=== PATIENT | male | born 1985 | race Caucasian/White ===

== ENCOUNTER 2018-06-06 19:33 | Emergency (ER) | payer OTHER ==
[~2018-06-06] VITALS: Ht 177.8 cm; Wt 95.3 kg
[2018-06-06 19:37] VITALS: Ht 177.8 cm; Wt 95.3 kg
[2018-06-06 19:56] LABS: BASOPHIL % 0.3 % (0-2); PLATELET COUNT 160 x10^3mcL (130-400)
[2018-06-06 20:02] LABS: RED CELL DISTRIBUTION WIDTH 15.8 % (11.5-14.5)
[2018-06-06 20:06] LABS: CALCIUM 9.5 mg/dL (8.5-10.1); CARBON DIOXIDE 14.1 mmol/L (21-32); CHLORIDE SERUM 95 mmol/L (98-107); CREATININE SERUM 1.3 mg/dL (0.7-1.3); GFR1 > 60 mL/min; GLUCOSE SERUM 138 mg/dL (74-106); POTASSIUM SERUM 3.7 mmol/L (3.5-5.1); SODIUM SERUM 134 mmol/L (136-145)
[2018-06-06 20:10] LABS: ALBUMIN 4.1 g/dL (3.4-5.0); ALKALINE PHOSPHATASE 106 U/L (46-116); ALT/SGPT 67 U/L (16-63); AST/SGOT 71 U/L (15-37); BILIRUBIN TOTAL 0.33 mg/dL (0.20-1.00); TOTAL PROTEIN, SERUM 8.1 g/dL (6.4-8.2)
[2018-06-06 20:14] LABS: AMPHETAMINE QUAL UR NONE DETECTED (See below)
[2018-06-06 22:05] VITALS: BP 151/103
== END 2018-06-06 22:05 | disposition home or self-care (01) ==
LOC: ED 19:33
PROVIDERS: Emergency Medicine
DX: R56.9 Unspecified convulsions (principal); I10 Essential (primary) hypertension; F32.9 Major depressive disorder, single episode, unspecified
CPT/HCPCS: G0480; J1953; J7030

== ENCOUNTER 2018-10-04 03:23 | Inpatient (IN) | payer OTHER ==
[~2018-10-04] VITALS: Ht 175.3 cm; Wt 88.5 kg
[2018-10-04 03:24] VITALS: Ht 175.3 cm; Wt 88.5 kg
--- NOTE | 2018-10-04 03:50 | NUR ---
PT IN H1 AND GOTTEN UP TO AMBULATE TO BED 14. PT ACCOMPANIED BY OFFICER. PT BEGAN TO BE COME UNSTEADY ON HIS FEET AND WAS ASSISTED TO THE GROUND BY THE OFFICER. PT NOTED TO BED PALE. PT WALK ASSISTED TO BED 14 BY MYSELF AND OFFICER.
--- NOTE | 2018-10-04 04:09 | NUR ---
PT BIB BY AMBULANCE A PREBOOK. PER OFFICER PT WAS FOUND DRUNK IN PUBLIC AND WAS TAKEN TO [facility] WERE THE STAFF MEMBERS WERE UNABLE TO OBTAIN AN ACCURATE BP ON THE PT. PT WAS BROUGHT HERE FOR EVALUATION. PT HAS NO COMPLAINTS AT THIS TIME. PT STATES THAT HE HAS NO PAIN BECAUSE HE HAS BEEN DRINKING ALCOHOL. PT PLACED ON FULL CM. RESP ARE EQUAL AND UNLABORED. NO ACUTE DISTRESS. [place] [employer] AT BEDSIDE.
[2018-10-04 04:35] LABS: BASOPHIL % 0 % (0-2); PLATELET COUNT 159 x10^3mcL (130-400); RED CELL DISTRIBUTION WIDTH 13.5 % (11.5-14.5)
[2018-10-04 04:43] LABS: ALBUMIN 3.6 g/dL (3.4-5.0); BILIRUBIN TOTAL 1.81 mg/dL (0.20-1.00); CALCIUM 8.4 mg/dL (8.5-10.1); CARBON DIOXIDE 17.1 mmol/L (21-32); POTASSIUM SERUM 3.3 mmol/L (3.5-5.1)
[2018-10-04 04:47] LABS: CREATININE SERUM 4.4 mg/dL (0.7-1.3)
[2018-10-04] MEDS ORDERED: SEROQUEL50 M1 PO (04:55)
[2018-10-04] MEDS ORDERED: ZESTRIL20 MG PO (04:56)
[2018-10-04] MEDS ORDERED: WELLBUTRIN XL300 M1 PO (04:57)
[2018-10-04] MEDS ORDERED: ATENOLOL25 MG PO (04:57)
--- NOTE | 2018-10-04 06:09 | NUR ---
REPORT GIVEN TO QUINCY DERAS TO ASSUME CARE OF PT.
--- NOTE | 2018-10-04 06:44 | NUR ---
RECEIVED PT FROM ED. PT AOX4. DENIES CHOE/DIZZINESS. PLACED PT ON TELE #19, READING NSR, HR 84. DENIES CP/PRESSURE. DENIES SOB/DIFFICULTY BREATHING, ON RA. IV TO LAC, INTACT AND PATENT. BED IN LOWEST POSITION. CALL LIGHT WITHIN REACH. WILL CONTINUE TO MONITOR.
[2018-10-04 06:50] VITALS: BP 106/59
--- NOTE | 2018-10-04 07:18 | NUR ---
PT SEEN REST ON BED, NO COMPLAIN OF PAIN AND DIZZINESS. PER PT REPORT, HE HAD SEIZURE ABOUT ONE MONTH AGO. SZ PRECAUTION APPLIED. PT STATED HE IS HOMELESS, MOST TIME HE SLEEPS IN HIS CAR. PT BREATHING ON RA, EVEN, UNLABORED. NPO AT THIS TIME. IV SITE, PATENT, INTACT. IVF INFUSING AT 100ML/HR.
[2018-10-04 07:52] LABS: AMPHETAMINE QUAL UR NONE DETECTED (See below)
[2018-10-04 08:21] VITALS: BP 95/53
[2018-10-04 09:51] VITALS: BP 95/53
--- NOTE | 2018-10-04 10:20 | NUR ---
PER PT'S REPORT, HE TAKES SEROQUEL 50MG IN DAY AND 100MG AT NIGHT, WELLBUTRIN 300MG. WILL MAKE DR. CHRISTY AWARE.
--- NOTE | 2018-10-04 13:54 | NUR ---
PT REFUSED TO TAKE SCHEDULED ATIVAN, AND STATED "THERE IS ONLY 24HR, ALCOHOL STILL IN HIS SYSTEM. I DON'T NEED ATIVAN NOW." WILL CLOSLY WATCH PT.
[2018-10-04 15:13] LABS: UA SPECIFIC GRAVITY >=1.030 (1.005-1.035); microscopic required? YES; urine erythrocyte 2+ (NEGATIVE)
--- NOTE | 2018-10-04 16:20 | NUR ---
PT STARTED BEING PARANOID AND STATED HEARING HIS BROTHER AND HIS AUNT ARE IN HALLWAY,TALKING ABOUT HIM. REORIENTED PT. PT'S HOME MEDS WELLBUTRIN AND SEROQUEL GIVEN. WILL CONTINUE TO MONITOR.
[2018-10-04 18:32] VITALS: BP 97/73
--- NOTE | 2018-10-04 18:36 | NUR ---
PT IS ABLE TO STAY COOPERATIVE CARE, BUT STILL PRESENTING PARANOID AND SAYING PEOPLE OUT SIDE OF ROOM ARE TALKING ABOUT HIM. REASSURE PT NO ONE IS TALKING ABOUT HIM.
--- NOTE | 2018-10-04 20:07 | NUR ---
PT. AWAKE, ALERT, ORIENTED X4. DENIES HEADACHE OR DIZZINESS. SPEECH CLEAR THROUGHOUT LUNG AARON, RESP. EVEN, UNLABORED. NO SOB NOTED. PT. ON RA. NSR ON TELE # 19. DENIES CHESTPAIN OR DISCOMFORT. PEDAL PULSES STRONG BLE. ABD. SOFT AND ROUND, BOWEL SOUNDS ACTIVE. IVF NS INFUSING WELL, SITE INTACT. PEDAL PULSES STRONG BLE. PT. APPEARS TENSE AT TIMES AND COULD BE HEARD SPEAKING TO HIMSELF DURING ROUNDS. PT. COOPERATIVE W/ CARE THUS FAR. FREQUENT ROUNDS PLANNED. CALL LIGHT WITHIN REACH.
[2018-10-04 20:27] VITALS: BP 136/80
--- NOTE | 2018-10-04 21:31 | NUR ---
PT. REFUSED TO TAKE HIS ATIVAN. PT. ADVICED, MADE AWARE OF THE NEED FOR THIS MEDICATION BUT HE STILL REFUSED. PT. MADE AWARE THAT MEDICATION IS AVAILABLE IF HE CHANGES HIS MIND.
--- NOTE | 2018-10-04 22:08 | NUR ---
PT. WALKING THE HALLS FREQUENTLY. COOPERATIVE W/ THUS FAR. WILL CONTINUE TO MONITOR.
--- NOTE | 2018-10-04 22:27 | NUR ---
PT. ROAMING THE [place], RESTLESS. IV CATH OUT, FOUND ON FLOOR. PT. ARM BLEEDING. SITE SECURED W/ 2X2 GAUZE. PT. ESCORTED TO BED. BED ALARM ON.PT. NON COMPLIANT AT THIS TIME
--- NOTE | 2018-10-04 23:21 | NUR ---
Nazario BURROWS notified regarding patients current situation if he decided to leave the hospital since it stated on ER and Primary MD H&P that pt is currently under custody for alcohol intoxication when pt got admitted. Call placed to Nazario BURROWS at [phone] and spoken with Dispatcher Tamara and she confirmed with a darshana and stated that patient was already cited and not under custody.
--- NOTE | 2018-10-04 23:47 | NUR ---
PT. OFFERED ATIVAN PO, PT. REFUSING MEDICATION. PT. CONTINUES TO CESAR AROUND THE HALLS. PT. REMOVING TELE BOX CONSTANTLY. PT. REORIENTED. FREQUENT ROUNDS BEING MADE. DIFFERENT LICENSED NURSES ASSISTING WITH ROUNDS TO ENSURE PT. SAFETY. PT.S' ROOM CLOSE TO NURSES STATION.
--- NOTE | 2018-10-05 00:41 | NUR ---
PT.'S ROAMING BEHAVIOR INCREASING. PT. BECOMING SUSPICIOUS OF STAFF AND STATING THAT PEOPLE ARE TALKING ABOUT HIM. PT. AGREED TO TAKE ONE DOSE OF ATIVAN PO, WHICH WAS GIVEN TO HIM. SECURITY HAD TO BE CALLED, PT. WAS BECOMING INCREASINGLY TENSE AND PUTTING HIS FIST UP AGAINST OUR MALE STAFF. THE SITUATION WAS DIFFUSED BY SECURITY, PATIENT BECAME CALM AND AGREED TO GO BACK TO HIS ROOM ANDSTAY IN HIS ROOM FOR NOW. TELE MONITOR WAS PLACED BACK ON. DR. DUKE FROM [facility].
--- NOTE | 2018-10-05 01:00 | NUR ---
DR. DUKE MADE AWARE OF PT.'S BEHAVIOR AND REFUSAL TO TAKE HIS MEDS EARLIER IN THE SHIFT. MADE AWARE OF PT.'S INCREASINGLY TENSE BEHAVIOR. PRN HALDOL IM AND PRN ATIVAN IV ORDERED. PSYCH CONSULT WILL BE DONE IN AM PER DR. DUKE.
--- NOTE | 2018-10-05 03:54 | NUR ---
PT. CONTINUES TO REMOVE HIS TELE MONITOR AND REFUSING TO PUT IT BACK ON. FIRST HE AGREES ANS THEN HE TAKES IT OFF. HEART MONITOR RETURNED TO STATION. PT. OFFERED HALDOL IM FOR AGITATION AND ANXIETY. PT. AGREED TO RECEIVED HALDOL IM ORDERED. MEDICATION GIVEN TO RT. BUTTOCKS IM ORDERED. WILL MONITOR.
[2018-10-05 05:54] VITALS: BP 125/81
--- NOTE | 2018-10-05 06:33 | NUR ---
PT. REFUSED HI BLOOD DRAW THIS MORNING. PT. MADE AWARE THAT LABS ARE ARE NEEDED FOR NETTER PT. EVALUATION BY THE DOCTOR/TEAM. AND THEY ARE VERY IMPORTANT TO HIS CARE. PT. STATED THAT HE JUST WOKE UP, IT WAS TOO EARLY. PT. ENCOURAGED TO HAVE HIS LABS DONE. PT. STATED THAT HE WILL THINK ABOUT IT. PT. ALSO STILL REFUSING TO PUT HIS HEART MONITOR BACK ON. IV SITE REMAINS INTACT, BUT NOT HOOKED UP TO IVF AT THIS TIME. PT. INCONSISTENTLY PULLS AT LINES WHILE WALKING. PT. CARE TO BE ENDORSED TO INCOMING NURSE.
--- NOTE | 2018-10-05 07:00 | NUR ---
RECEIVED BEDSIDE REPORT FROM PLUMBING DRAFTER NURSE ALEX. PATIENT RESTING IN BED LAYING PRONE. IV TO LFA IS SALINE LOCKED DUE TO PATIENT PULLING OUT IV, MD AWARE. PATIENT ADMITTED FOR ARF. HYPOTENSION. LAST PM AGGITATED GIVEN HALDOL IM. REFUSING TELE. TELE MONITOR BACK WITH TECH. ON ROOM AIR. IV SITE WNL. CALL LIGHT AND PHONE WITHIN REACH. BED IN LOW POSITION. SAFETY PRECAUTIONS IN PLACE.
--- NOTE | 2018-10-05 07:10 | NUR ---
PHYSICAL ASSESSMENT COMPLETED. PLEASE SEE PROBLEM FOCUSED CARE FOR DETAILS.
--- NOTE | 2018-10-05 07:40 | NUR ---
MD JACKSON AT BEDSIDE DOING ROUNDS. NO NEW ORDERS AT THIS TIME.
--- NOTE | 2018-10-05 08:44 | NUR ---
ADMINISTERED MEDICATIONS PER EMAR. PATIENT TOLORATED WELL. EDUCATED ON NEED FOR MEDICATION WELL ADVERSE EFFECTS TO REPORT. PATIENT VERBALIZED UNDERSTANDING. QUESTIONS AND CONCERNS ADDRESSED. SAFETY PRECAUTIONS IN PLACE.
[2018-10-05 09:20] VITALS: BP 140/88
--- NOTE | 2018-10-05 09:25 | NUR ---
PATIENT RESTING COMFORTABLY IN BED, DENIES AUDITORY OR VISUAL HALLUCINATIONS. DENIES OTHER NEEDS AT THIS TIME. QUESTIONS AND CONCERNS ADDRESSED, SAFETY PRECAUTIONS IN PLACE. CALL LIGHT WITHIN REACH, BED IN LOW POSITION.
--- NOTE | 2018-10-05 10:24 | NUR ---
PATIENT RESTING COMFORTABLY IN BED, DENIES AUDITORY OR VISUAL HALLUCINATIONS. DENIES OTHER NEEDS AT THIS TIME. QUESTIONS AND CONCERNS ADDRESSED, CALL LIGHT WITHIN REACH, BED IN LOW POSITION. SEIZURE AND SAFETY PRECAUTIONS IN PLACE.
--- NOTE | 2018-10-05 10:30 | NUR ---
DOCTOR DECKER NEPHMERT AT BEDSIDE FOR CONSULT.
--- NOTE | 2018-10-05 11:10 | NUR ---
PAGED DOCTOR TERRIER TO GET OK TO SHOWER ORDER. PATIENT IS STATING HE WANTS TO TAKE A SHOWER. WAITING FOR MD TO CALL BACK.
--- NOTE | 2018-10-05 11:14 | NUR ---
RECEIVED CALL BACK FROM MD JACKSON. GIVEN TELEPHONE REBACK ORDER OK TO SHOWER. ORDER ENTERED.
--- NOTE | 2018-10-05 12:46 | NUR ---
PATIENT IS RESTING COMFORTABLY INBED EATING LUNCH. NO APPARENT SIGNS OF PAIN, SOB, OR RESPIRATORY DISTRESS. PATIENT DENIES HALLUCINATIONS. IV CDI. NO EDEMA OR ERYTHEMA NOTED TO SITE. CALL LIGHT WITHIN REACH BED IN LOW POSITION. PATIENT DENIES OTHER NEEDS AT THIS TIME. SAFETY AND SEIZURE PRECAUCTIONS IN PLACE.
[2018-10-05 12:49] VITALS: BP 111/67
[2018-10-05 13:08] LABS: BASOPHIL % 0.4 % (0-2); PLATELET COUNT 168 x10^3mcL (130-400); RED CELL DISTRIBUTION WIDTH 13.7 % (11.5-14.5)
[2018-10-05 13:18] LABS: ALBUMIN 3.4 g/dL (3.4-5.0); ALKALINE PHOSPHATASE 90 U/L (46-116); ALT/SGPT 55 U/L (16-63); AST/SGOT 100 U/L (15-37); BILIRUBIN DIRECT 0.81 mg/dL (0.0-0.2); BILIRUBIN TOTAL 1.4 mg/dL (0.20-1.00); CALCIUM 9.4 mg/dL (8.5-10.1); CARBON DIOXIDE 30.9 mmol/L (21-32); CHLORIDE SERUM 96 mmol/L (98-107); CREATININE SERUM 1.2 mg/dL (0.7-1.3); GFR1 > 60 mL/min; GLUCOSE SERUM 112 mg/dL (74-106); SODIUM SERUM 137 mmol/L (136-145)
--- NOTE | 2018-10-05 13:30 | NUR ---
CALLED TO SERVICE AND MESSAGE LEFT.
--- NOTE | 2018-10-05 13:40 | NUR ---
ADMINISTERED MEDICATION PER EMAR. EDUCATED PATIENT ON NEED FOR MEDICATION WELL ADVERSE EFFECTS TO REPORT. PATIENT VERBALIZED UNDERSTANDING. QUESTIONS AND CONCERNS ADDRESSED. SAFETY PRECAUTIONS IN PLACE.
--- NOTE | 2018-10-05 15:01 | NUR ---
PATIENT IS RESTING COMFORTABLY IN BED, NO APPARENT SIGNS OF PAIN, SOB, OR RESPIRATORY DISTRESS. DENIES HALLUCINATIONS. SEIZURE PRECAUTIONS IN PLACE. SAFETY PRECAUTIONS IN PLACE.
[2018-10-05 15:16] VITALS: BP 111/67
--- NOTE | 2018-10-05 16:18 | NUR ---
RECEIVED CALL BACK FROM MD JACKSON. GAVE TELEPHONE READ BACK ORDER FOR POTASSIUM CHLORIDE.
--- NOTE | 2018-10-05 17:45 | NUR ---
PATIENT IS RESTING COMFORTABLY IN BED, NO APPARENT SIGNS OF PAIN, SOB, OR RESPIRATORY DISTRESS. DENIES HALLUCINATIONS. SEIZURE PRECAUTIONS IN PLACE. SAFETY PRECAUTIONS IN PLACE. DENIES OTHER NEEDS AT THIS TIME.
[2018-10-05 17:51] VITALS: BP 119/80
--- NOTE | 2018-10-05 18:01 | NUR ---
PATIENT IS RESTING COMFORTABLY IN BED, NO APPARENT SIGNS OF PAIN, SOB, OR RESPIRATORY DISTRESS. ON ROOM AIR. PATIENT IS ALERT AND ORIENTED X4. COOPERATIVE WITH NURSING CARE. NO APPARENT SIGNS OF PSYCHOSIS, PATIENT DENIES HALLUCINATIONS. PATIENT WAS CLEARED BY POLICE DEPARTMENT. CLEARED BY DR. JACKSON FOR DISCHARGE PENDING PSYCH CLEARANCE BY DR COTA. PATIENT IS NOT ON TELE (REFUSED). IV TO LFA INFUSING NS AT 100ML/HR. ON SEIZURE PRECAUTIONS. QUESTIONS AND CONCERNS ADDRESSED, SAFETY PRECAUTIONS IN PLACE. WILL ENDORSE CARE TO CYBER SYSTEMS ENGINEER NURSE.
--- NOTE | 2018-10-05 19:15 | NUR ---
ENDORSED CARE TO DELINQUENCY COUNSELOR NURSE ALEX.
--- NOTE | 2018-10-05 19:40 | NUR ---
PT. AWAKE, ALERT, ORIENTED X4. SITTING UP IN CHAIR AT BEDSIDE. DENIES HEADACHE OR DIZZINESS. BREATH SOUNDS CLEAR THROUGHOUT LUNG AARON, RESP. EVEN, UNLABORED. PT. ON RA. NO SOB NOTED. PT. COOPERATIVE W/ CARE AT THIS TIME. NO SIGNS OF PSYCHOSIS NOTED. FREQUENT ROUNDS PLANNED. DENIES ANY CHESTPAIN OR DISCOMFORT. PEDAL PULSES STRONG BLE. NO EDEMA NOTED, ABD. SOFT AND FLAT, BOWEL SOUNDS ACTIVE. IVF INFUSING WELL, SITE INTACT. CALL LIGHT WITHIN REACH.
[2018-10-05 21:29] VITALS: BP 125/85
--- NOTE | 2018-10-06 00:59 | NUR ---
PT. ASLEEP AT THIS TIME. COOPERATIVE W/ CARE THUS FAR. NO SIGNS OF PSYCHOSIS. IVF INFUSING WELL, SITE INTACT. CALL LIGHT WITHIN REACH.
[2018-10-06 06:03] VITALS: BP 129/85
--- NOTE | 2018-10-06 06:39 | NUR ---
PT. HAD UNEVENTFUL NIGHT. MOSTLY SLEPT. COOPERATIVE W/ CARE. NO SIGNS OF PSYCHOSIS THROUGHOUT NIGHT. PT. ACCEPTING HIS MEDICATION, HAS NOT ROAMED THE HALLS FOR THE ENTIRE SHIFT. IVF INFUSING WELL, SITE INTACT. CALL LIGHT WITHIN REACH. WILL ENDORSE PT. CARE TO INCOMING NURSE.
--- NOTE | 2018-10-06 07:30 | NUR ---
PT ENDORSE TO ME THIS MORNING. LAYING IN BED RESTING. AA/O X4 /BREATHING EVEN AND UNLABORED ON RA, NO ACUTE RESP DISTRESS OR SOB NOTED. REFUSING TELE 19, DR. JACKSON AT BEDSIDE AND AWARE. VOIDS FREELY. AMB. DENIES ANY PAIN OR DISCOMFORT. IV TO THE LFA INTACT AND PATENT, INFUSING AT 100ML/HR, NO REDNESS OR SWELLING NOTED. WILL CONTINUE PLAN OF CARE.
[2018-10-06 12:57] VITALS: BP 127/86
--- NOTE | 2018-10-06 14:25 | NUR ---
PT TOLERATED 100% OF HIS LUNCH. DENIES ANY DISCOMFORT AT THIS TIME.
[2018-10-06 16:08] VITALS: BP 146/104
--- NOTE | 2018-10-06 18:29 | NUR ---
NO ACUTE CHANGES AT THIS TIME. PT SITTING UP IN CHAIR HAVING HIS DINNER. DENIES ANY CP OR DISCOMFORT. PENDING PSYCH TO SEE PT/ DENIES ANY SUICIDAL IDEATION A THIS TIME/ CALM AND COOPERATIVE. IV TO THE LFA INTACT AND PATENT, INFUSING AT 100ML/HR, NO REDNESS OR SWELLING NOTED. WILL ENDORSE TO INCOMING RN.
--- NOTE | 2018-10-06 19:15 | NUR ---
RECEIVED PT FROM PREVIOUS SHIFT NURSE. PT AOX4, DENIES CHOE/DIZZINESS. REFUSING TO WEAR TELE MONITOR, DR. JACKSON AWARE. DENIES SOB/DIFFICULTY BREATHING, ON RA. IV TO LFA, INTACT AND PATENT. BED IN LOWEST POSITION. CALL LIGHT WITHIN REACH. WILL CONTINUE TO MONITOR.
[2018-10-06 19:57] VITALS: BP 146/109
--- NOTE | 2018-10-06 22:00 | NUR ---
PT REMOVED IV, TIP INTACT. NEW IV PLACED TO RFA, 20G. INTACT AND PATENT.
--- NOTE | 2018-10-07 03:00 | NUR ---
PT RESTING IN BED. RR EVEN AND UNLABORED. IN NO ACUTE DISTRESS. CALL LIGHT WITHIN REACH. BED IN LOWEST POSITION. WILL CONTINUE TO MONITOR.
[2018-10-07 05:03] VITALS: BP 145/103
--- NOTE | 2018-10-07 07:02 | NUR ---
BP 145/103, DR. JACKSON MADE AWARE.
--- NOTE | 2018-10-07 07:36 | NUR ---
HANDOFF REPORT RECEIVED FROM AUGUSTA MATHEW. PATIENT ASLEEP ON ROUNDS. NOT IN ANY DISTRESS. NS AT 100CC/HOUR INFUSING PERIPHERALLY. CALL HARE WITHIN REACH. UPPER SIDERAILS UP.
[2018-10-07 08:22] VITALS: BP 139/95
--- NOTE | 2018-10-07 11:36 | NUR ---
OOB TO BATHROOM AD KOMAL. ENCOURAGED TO AMBULATE IN THE HALLWAY. STATED " I AM OK HERE."
--- NOTE | 2018-10-07 13:40 | NUR ---
CLEARED BY PSYCHE FOR DISCHARGE. PATIENT AWARE AND AGREEABLE.
--- NOTE | 2018-10-07 15:14 | NUR ---
DISCHARGE TEACHINGS DONE. HEP LOCK REMOVED. PATIENT WITH NO COMPLAINTS. ESCORTED OFF THE FLOOR BY TYRELL DICKSON.
== END 2018-10-07 16:28 | disposition home or self-care (01) | DRG 469 ==
LOC: ED 03:23 → DU 05:16
PROVIDERS: Emergency Medicine; Internal Medicine Nephrology; ADMIT Internal Medicine
DX: N17.0 Acute kidney failure with tubular necrosis (principal); G93.40 Encephalopathy, unspecified; E83.42 Hypomagnesemia; E87.1 Hypo-osmolality and hyponatremia; E87.6 Hypokalemia; Y90.0 Blood alcohol level of less than 20 mg/100 ml; G89.29 Other chronic pain; F10.220 Alcohol dependence with intoxication, uncomplicated; N18.9 Chronic kidney disease, unspecified; I12.9 Hypertensive chronic kidney disease with stage 1 through stage 4 chronic kidney disease, or unspecified chronic kidney disease; M54.5 Low back pain; F31.9 Bipolar disorder, unspecified; F41.9 Anxiety disorder, unspecified; G40.909 Epilepsy, unspecified, not intractable, without status epilepticus; Y92.018 Other place in single-family (private) house as the place of occurrence of the external cause; Z68.28 Body mass index [BMI] 28.0-28.9, adult
CPT/HCPCS: G0378; G0480; J0610; J1610; J1630; J7030; Q0092

== ENCOUNTER 2018-12-25 16:36 | Observation (INO) | payer OTHER ==
[~2018-12-25] VITALS: Ht 175.3 cm; Wt 88.5 kg
[~2018-12-25 16:36] MED LIST: ATENOLOL25 MG PO; SEROQUEL50 M1 PO; WELLBUTRIN XL300 M1 PO; ZESTRIL20 MG PO
[2018-12-25 18:02] LABS: BASOPHIL % 0.7 % (0-2); PLATELET COUNT 258 x10^3mcL (130-400); RED CELL DISTRIBUTION WIDTH 12.3 % (11.5-14.5)
[2018-12-25 18:03] LABS: ALKALINE PHOSPHATASE 147 U/L (46-116); ALT/SGPT 91 U/L (16-63); AST/SGOT 136 U/L (15-37); BILIRUBIN TOTAL 0.44 mg/dL (0.20-1.00); CALCIUM 8.5 mg/dL (8.5-10.1); CARBON DIOXIDE 29.6 mmol/L (21-32); CHLORIDE SERUM 105 mmol/L (98-107); CHOLESTEROL 161 mg/dL (<200); CREATININE SERUM 0.7 mg/dL (0.7-1.3); GFR1 > 60 mL/min; GLUCOSE SERUM 127 mg/dL (74-106); HDL CHOLESTEROL 52 mg/dL (40-60); LIPASE 537 IU/L (73-393); MAGNESIUM 1.4 mg/dL (1.8-2.4); SODIUM SERUM 145 mmol/L (136-145); T4(THYROXINE) 6.9 ug/dL (4.7-13.3); TOTAL PROTEIN, SERUM 7.3 g/dL (6.4-8.2)
[2018-12-25 18:06] LABS: ALBUMIN 3.2 g/dL (3.4-5.0)
[2018-12-25 18:10] LABS: POTASSIUM SERUM 2.9 mmol/L (3.5-5.1)
[2018-12-25 18:55] LABS: microscopic required? NO
[2018-12-25 19:03] LABS: UA SPECIFIC GRAVITY <=1.005 (1.005-1.035); urine erythrocyte NEGATIVE (NEGATIVE)
[2018-12-25 19:19] LABS: AMPHETAMINE QUAL UR NONE DETECTED (See below)
[2018-12-25 21:09] VITALS: BP 117/80
[2018-12-25 21:18] VITALS: Ht 175.3 cm; Wt 88.5 kg
[2018-12-26 06:15] LABS: BASOPHIL % 0.7 % (0-2); PLATELET COUNT 338 x10^3mcL (130-400)
[2018-12-26 06:24] LABS: CALCIUM 7.1 mg/dL (8.5-10.1); CARBON DIOXIDE 27.8 mmol/L (21-32); CHLORIDE SERUM 105 mmol/L (98-107); CREATININE SERUM 0.7 mg/dL (0.7-1.3); GFR1 > 60 mL/min; GLUCOSE SERUM 124 mg/dL (74-106); PHOSPHOROUS 3.3 mg/dL (2.5-4.9); SODIUM SERUM 143 mmol/L (136-145)
[2018-12-26 06:25] VITALS: BP 116/64
[2018-12-26 06:25] LABS: POTASSIUM SERUM 2.8 mmol/L (3.5-5.1)
[2018-12-26 07:32] LABS: RED CELL DISTRIBUTION WIDTH 17.1 % (11.5-14.5)
[2018-12-26 09:50] VITALS: BP 130/89
[2018-12-26 10:17] VITALS: BP 130/89
[2018-12-26 12:16] LABS: MAGNESIUM 1.7 mg/dL (1.8-2.4); POTASSIUM SERUM 3.7 mmol/L (3.5-5.1)
== END 2018-12-26 15:41 | disposition home or self-care (01) | DRG 425 ==
LOC: ED 16:36 → DU 19:51 → MU 19:51 → DU 20:55 → MU 21:18
PROVIDERS: Emergency Medicine; Internal Medicine Nephrology; ADMIT Internal Medicine Pulmonary Disease
DX: E87.6 Hypokalemia (principal); F10.231 Alcohol dependence with withdrawal delirium; F10.229 Alcohol dependence with intoxication, unspecified; E83.42 Hypomagnesemia; I10 Essential (primary) hypertension; Y90.8 Blood alcohol level of 240 mg/100 ml or more; Z68.28 Body mass index [BMI] 28.0-28.9, adult; Z59.0 Homelessness
CPT/HCPCS: 82962; 90658; 99406; G0378; G0480; J3475; J3480; J3490; J7030; J7042; Q0092

== ENCOUNTER 2019-03-02 17:56 | Inpatient (IN) | payer OTHER ==
[~2019-03-02] VITALS: Ht 172.7 cm; Wt 91.6 kg
[~2019-03-02 17:56] MED LIST changes: +BUPROPION HYDR300 MG PO; +KLOR-CON M1010 MEQ PO; +LATUDA40 M1 PO; +LIBRAX1 CAP PO; +PROTONIX40 MG PO; +SEROQUEL PO; +TENORMIN100 MG PO; +ZOF4 SL
--- NOTE | 2019-03-02 18:00 | NUR ---
REC'D A 33/M IN RM 4 BIBA WITH C/O ETOH INTOXICATION. PER MEDIC, BYPASSER CALLED 911 BECAUSE PT FOUND DROWSY AT [place]. ON SCENE PT FOUND TO BE HYPOTENSIVE AND ADMITTED TO DRINKING [facility]OD[facility]. ONCE ARRIVED TO ED, PT UNRESPONSIVE TO PAIN STIMULI OR AMMONIA, RESP E/U, HEAVY SNORING NOTED. PT CONTINUES TO BE HYPOTENSIVE IN THE ED. DR VERDUGO MADE AWARE.
--- NOTE | 2019-03-02 18:01 | NUR ---
DR VERDUGO AT BEDSIDE FOR MSE.
--- NOTE | 2019-03-02 18:22 | NUR ---
XRAY AT BEDSIDE.
[2019-03-02 18:23] LABS: BASOPHIL % 0.6 % (0-2); PLATELET COUNT 360 x10^3mcL (130-400)
[2019-03-02 18:25] LABS: RED CELL DISTRIBUTION WIDTH 14.9 % (11.5-14.5)
[2019-03-02 18:34] LABS: CALCIUM 7.9 mg/dL (8.5-10.1); CARBON DIOXIDE 25.3 mmol/L (21-32); CHLORIDE SERUM 105 mmol/L (98-107); CREATININE SERUM 1.1 mg/dL (0.7-1.3); GFR1 > 60 mL/min; GLUCOSE SERUM 116 mg/dL (74-106); POTASSIUM SERUM 3.2 mmol/L (3.5-5.1); SODIUM SERUM 144 mmol/L (136-145)
--- NOTE | 2019-03-02 18:34 | NUR ---
PT TAKEN TO CT VIA RROSETTE.
[2019-03-02 18:45] LABS: ALKALINE PHOSPHATASE 119 U/L (46-116); ALT/SGPT 58 U/L (16-63); AST/SGOT 104 U/L (15-37); BILIRUBIN TOTAL 0.3 mg/dL (0.20-1.00); CHOLESTEROL 165 mg/dL (<200); HDL CHOLESTEROL 49 mg/dL (40-60); LIPASE 133 IU/L (73-393); MAGNESIUM 1.9 mg/dL (1.8-2.4); T4(THYROXINE) 6.3 ug/dL (4.7-13.3); TOTAL PROTEIN, SERUM 6.9 g/dL (6.4-8.2)
--- NOTE | 2019-03-02 19:00 | NUR ---
RT AT BEDSIDE FOR ROOM AIR ABGS.
[2019-03-02 19:03] LABS: microscopic required? NO
[2019-03-02 19:13] LABS: UA SPECIFIC GRAVITY <=1.005 (1.005-1.035); urine erythrocyte NEGATIVE (NEGATIVE)
--- NOTE | 2019-03-02 19:20 | NUR ---
PATIENT GIVEN 2MG NARCAN PER DR JAOCBO ORDER, PATIENT MOVEMENT NOTED TO BILATERAL HANDS. REMAINS ALTERED, NON RESPONSIVE TO VERBAL STIMULI. MINOR RESPONSE TO TACTILE STIMULI. DR JACOBO TO INTUBATE.
--- NOTE | 2019-03-02 19:21 | NUR ---
PATIENT INTUBATED AT THIS TIME WITH DR JACOBO, RT TERRANCE, LEN PERDOMO AND GUILLERMINA AT BEDSIDE.
[2019-03-02 19:22] LABS: AMPHETAMINE QUAL UR NONE DETECTED (See below)
--- NOTE | 2019-03-02 19:35 | NUR ---
LAB AT BEDSIDE TO DRAW BLOOD CULTURES.
--- NOTE | 2019-03-02 19:40 | NUR ---
NG TUBE PLACED TO LEFT NARE, CONFIRMED PLACEMENT VIA GI AUSCULTATION.
--- NOTE | 2019-03-02 19:41 | NUR ---
PER MD JACOBO C-SPINE CLEAR. C-COLLAR REMOVED AT THIS TIME.
--- NOTE | 2019-03-02 19:57 | NUR ---
PATIENT AGITATED AND BITING ON ETT TUBE. RT, RUFUS AT BEDSIDE. OPA PLACED IN PATIENTS MOUTH BITE BLOCK. PATIENT MOVING BUE REACHING FOR ETT TUBE, OPENED EYES SPONTANEOUSLY. PT MEDICATED WITH ATIVAN IVP PER DR JACOBO ORDER.
[2019-03-02 20:00] VITALS: BP 140/79
--- NOTE | 2019-03-02 20:00 | NUR ---
PT FIO2 CHANGED TO 80% PER RT
--- NOTE | 2019-03-02 20:12 | NUR ---
DR JACOBO AT BEDSIDE FOR CENTRAL LINE PLACEMENT.
--- NOTE | 2019-03-02 20:35 | NUR ---
CENTRAL LINE PLACEMENT COMPLETE BY DR JACOBO. XRAY AT BEDSIDE.
--- NOTE | 2019-03-02 20:58 | NUR ---
SPOKE WITH DR VALLE REGARDING PATIENT CARE. NOTIFIED OF PATIENTS CONDITION AND MEDICATIONS GIVEN SO FAR. PER DR CISNEROS, HE WILL COME AND SEE PATIENT SOME TIME SOON.
--- NOTE | 2019-03-02 21:45 | NUR ---
NG CONNECTED TO LOW INTERMITTENT SUCTION PER DR JACOBO VERBAL ORDER. CONFIRMED PLACEMENT FOR USE OF NG TUBE.
--- NOTE | 2019-03-02 22:14 | NUR ---
APPROX 700CC PALE YELLOW URINE WMPTIED FROM SAM CATH AT THIS TIME.
--- NOTE | 2019-03-02 22:21 | NUR ---
PT AGITATED AT THIS TIME. MOVING ALL 4 EXTREMETIES AND BITING ON ETT TUBE. PT VERBALLY REASSURED. GIVEN 2MG ATIVAN IVP PER ORDER, SEE EMAR.
--- NOTE | 2019-03-02 22:34 | NUR ---
SECRETIONS NOTED TO ORAL CAVITY. PATIENT SUCTIONED AT THIS TIME. TOLERATED WELL. PATIENT IS TRANQUIL AT THIS TIME.
--- NOTE | 2019-03-02 23:09 | NUR ---
PT POSITIONING CHANGED AT THIS TIME. MINOR MOVEMENTS UPON REPOSITIONING. PT APPEARS CALM AND TRANQUIL AT THIS TIME. ETT TO VENT REMAINS INTACT. WILL CONTIUE TO CLOSELY MONITOR.
--- NOTE | 2019-03-02 23:41 | NUR ---
PT SHOWING SIGNS OF RESTLESSNESS. SHAKING ALL 4 EXTREMETIES AND REACHING FOR LINES. GIVEN 4MG MORPHINE IVP PER ORDER. SEE EMAR.
[2019-03-02 23:44] VITALS: BP 123/43
[2019-03-03] VITALS (12 sets, daily range): BP systolic 109–155; BP diastolic 38–100; Ht 172.7 cm; Wt 91.6 kg
--- NOTE | 2019-03-03 00:04 | NUR ---
RT COFFMAN CALLED FOR SCHEDULED BREATHING TREATMENT. REPORTS HE WILL BE OVER TO ADMINISTER TREATMENT.
--- NOTE | 2019-03-03 00:38 | NUR ---
PATIENT BECOMING RESTLESS. MOVING ALL 4 EXTREMETIES. OPENED EYES AND APPEARS RESTLESS AND AGITATED. MEDICATED WITH ATIVAN IVP PER ORDER, SEE EMAR.
--- NOTE | 2019-03-03 01:41 | NUR ---
LAB AT BEDSIDE.
--- NOTE | 2019-03-03 01:59 | NUR ---
DR CISNEROS PAGED REGARDING SEDATION GTT FOR PATIENT. PT IS INCREASINGLY RESTLESS AT THIS TIME, SHOWING SIGNS OF AGITATION. PENDING CALL BACK.
--- NOTE | 2019-03-03 02:02 | NUR ---
KOBI WARNER AT BEDSIDE.
--- NOTE | 2019-03-03 02:20 | NUR ---
DIPRIVAN STARTED AT 10MCG/KG/MIN. TO TITRATE PER PROTOCOL.
--- NOTE | 2019-03-03 02:23 | NUR ---
FIO2 TITRATED TO 60% PER RT
--- NOTE | 2019-03-03 02:30 | NUR ---
PT RSS 2. DIPRIVAN TO REMAIN AT 10MCG/KG/MIN. BP 145/99 (109).
--- NOTE | 2019-03-03 03:24 | NUR ---
PATIENT REPOSITIONED WITH TECH, GUILLERMINA. TOLERATED WELL. FOLLOWING COMMANDS. OPENS EYES TO VERBAL. RSS 2. DIPRIVAN CONTINUING TO INFUSE AT 10MCG/KG/MIN.
--- NOTE | 2019-03-03 04:30 | NUR ---
KOBI WARNER AT BEDSIDE. PATIENT TITRATED TO 50% FIO2 AT THIS TIME.
--- NOTE | 2019-03-03 04:50 | NUR ---
PT REPOSITIONED AT THIS TIME. RSS 3. PT REMAINS ON DIPRIVAN AT 10MCG/KG/MIN. BP 138/84 (95).
--- NOTE | 2019-03-03 05:13 | NUR ---
LAB AT BEDSIDE.
--- NOTE | 2019-03-03 05:38 | NUR ---
KOBI WARNER AT BEDSIDE. FIO2 TITRATED TO 40% AT THIS TIME.
[2019-03-03 05:42] LABS: ALKALINE PHOSPHATASE 128 U/L (46-116); ALT/SGPT 59 U/L (16-63); AST/SGOT 102 U/L (15-37); BILIRUBIN TOTAL 0.6 mg/dL (0.20-1.00); CALCIUM 7.6 mg/dL (8.5-10.1); CARBON DIOXIDE 28.7 mmol/L (21-32); CHLORIDE SERUM 108 mmol/L (98-107); CREATININE SERUM 0.9 mg/dL (0.7-1.3); GFR1 > 60 mL/min; GLUCOSE SERUM 86 mg/dL (74-106); LIPASE 59 IU/L (73-393); MAGNESIUM 1.9 mg/dL (1.8-2.4); POTASSIUM SERUM 4.3 mmol/L (3.5-5.1); SODIUM SERUM 143 mmol/L (136-145); TOTAL PROTEIN, SERUM 6.7 g/dL (6.4-8.2)
[2019-03-03 05:52] LABS: ALBUMIN 2.9 g/dL (3.4-5.0)
--- NOTE | 2019-03-03 06:37 | NUR ---
PT RSS 3. REPOITIONED AT THIS TIME. ZOSYN INFUSING ORDERED. SEE EMAR.
--- NOTE | 2019-03-03 06:46 | NUR ---
XRAY AT BEDSIDE.
--- NOTE | 2019-03-03 07:10 | NUR ---
REPORT GIVEN TO AUGUSTA RESTREPO TO ASSUME CARE.
--- NOTE | 2019-03-03 07:35 | NUR ---
RECEIVED PT FROM ED BY GARRET WITH ED NURSE, RT AT BEDSIDE. PT IS INTUBED 8.0 ETT, 25 CM LL, VENT SETTING: TV 450, PEEP 5, FIO2 40% RR 14. PT IS SEDATED ON PROPOFOL 10MCG/KG/HR, RSS 4. PT IS AROUSED, OPEN EYES TO AUDITORY STIMULI. PT FOLLOW SIMPLE COMMAND. NGT R NARIS SECURED TO ETT. SAM IN PLACE, DRAINING VIA GRAVITY, YELLOW URINE. R FEMORAL CENTRAL LINE, SITE CLEAN, NO REDNESS NOTED. WILL CONTINUE PT'S CARE.
--- NOTE | 2019-03-03 10:44 | NUR ---
PT IS WELL SEDATED, DECREASED PROPOFOL FROM 10MCG TO 8 MCG/KG/HR. RSS 4.
--- NOTE | 2019-03-03 17:32 | NUR ---
PER DR. AGUAYO ORDER, PT IS EXTUBATED AT 1720. NGT IS REMOVED AT THE SAME TIME. PT IS AWAKE, TOLERATE WELL. O2 2L VIA NC APPLIED.
--- NOTE | 2019-03-03 18:51 | NUR ---
AFTER EXTUBATION. PT BREATHING ON O2 2L VIA NC, O2 SAT 98%. PT REMAINS CALM. BEDSIDE SWALLOW SCREEN DONE. PT SWALLOW APPLESAUCE, PUDDING, JELLO AND ORANGE JUICE WITHOUT COUGHING AND CHOKING. WILL ENDORSE PT'S CARE TO ONCOMING NURSE.
--- NOTE | 2019-03-03 19:05 | NUR ---
RECIEVED REPORT FROM KAYE DERAS. WILL RESUME CARE.
--- NOTE | 2019-03-03 19:20 | NUR ---
RECEIVED PT AAOX4. LETHARGIC. ABLE TO FOLLOW COMMANDS. PUPILS 3MM BRISK. BREATHING E/U. ON 2L NC, O2SAT 99%. LUNG SOUNDS CTA. S1S2 AUSCULTATED. PT STATES NO PAIN AT THIS TIME. NO REDNESS, DRAINAGE, OR SWELLING NOTED TO EENT. CAP REFILL <3 SEC. NO EDEMA NOTED. PULSES PALPABLE. NS INFUSING AT 80CC/HR TO R FEMORAL CVC, IV SITE WNL. MILD GENERALIZED WEAKNESS. JOINTS INTACT. ABDOMEN SOFT, NONTENDER. BS ACTIVE X 4. NO N/V. SAM CATHETER IN PLACE DRAINING VIA GRAVITY YELLOW URINE. PT HAS ABRASION TO BRIDGE OF NOSE AND BRUISE TO L FOREHEAD. BED IN LOW POSITION. CALL LIGHT WITHIN REACH.
--- NOTE | 2019-03-03 20:34 | NUR ---
PT REFUSED BREATHING TREATMENT FROM RT MEGHNA. RISKS AND BENEFITS EXPLAINED BY RT. PT STILL REFUSED. BREATHING E/U. NO RESPIRATORY DISTRESS NOTED.
--- NOTE | 2019-03-04 02:25 | NUR ---
PT AMBULATED TO BEDSIDE COMMODE. HAD LARGE FORMED BM.
[2019-03-04 03:09] VITALS: BP 134/96
--- NOTE | 2019-03-04 05:30 | NUR ---
RECEIVED PT. PT RESTING IN BED. AA&O X4. NO SOB ON O2 2L VIA NC. NO C/O PAIN. NO DISTRESS NOTED. IV TO LAC, LFA AND RIGHT HAND, INTACT. R FEMORAL CENTRAL LINE, INTACT.
[2019-03-04 06:01] LABS: ALKALINE PHOSPHATASE 136 U/L (46-116); ALT/SGPT 49 U/L (16-63); AST/SGOT 85 U/L (15-37); BILIRUBIN TOTAL 1.08 mg/dL (0.20-1.00); CALCIUM 8.9 mg/dL (8.5-10.1); CARBON DIOXIDE 30.7 mmol/L (21-32); CHLORIDE SERUM 102 mmol/L (98-107); CREATININE SERUM 0.7 mg/dL (0.7-1.3); GFR1 > 60 mL/min; GLUCOSE SERUM 88 mg/dL (74-106); MAGNESIUM 1.8 mg/dL (1.8-2.4); POTASSIUM SERUM 4.3 mmol/L (3.5-5.1); SODIUM SERUM 138 mmol/L (136-145); TOTAL PROTEIN, SERUM 7.1 g/dL (6.4-8.2)
[2019-03-04 06:10] LABS: ALBUMIN 2.9 g/dL (3.4-5.0)
--- NOTE | 2019-03-04 07:30 | NUR ---
PT ENDORSE TO ME THIS MORNING, LAYING IN BED RESTING, BREATHING EVEN AND UNLABORED ON 2L NC, NO ACUTE RESP DISTRESS OR SOB NOTED. TELE SR HR 92, DENIES ANY CP OR PRESSURE. BOWEL SOUNDS ACTIVE IN ALL FOUR QUADS, LAST BM PER PT 03/03 FORMED, SAM INTACT AND PATENT, CLEAR YELLOW URINE NOTED. PT DENIES FEELING DIZZY OR DISCOMFORT. IVS TO THE LAC AND LFA AND RHAND INTACT AND PATENT/ INFUSING NS AT 80ML/HR. R FEMORAL CENTRAL INTACT AND PATENT. CALL LIGHT IN REACH. BED IN LOW POSITION. WILL CONTINUE TO MONITOR.
[2019-03-04 07:39] VITALS: BP 138/94
--- NOTE | 2019-03-04 10:15 | NUR ---
PT C/O LOWER BACK PAIN 09/15, MEDICATED PER EMAR. WILL CONTINUE TO MONITOR.
--- NOTE | 2019-03-04 11:53 | NUR ---
PT DR. MATTHEWS ORDERS OK TO DC SAM AND ADD SOFT MECH DIET FOR LUNCH. PT PASSED BEDSIDE SWALLOW EVAL WITH RN/ DENIES ANY DISCOMFORT OR PAIN WHILE SWALLOWING.
[2019-03-04 12:00] VITALS: BP 115/76
[2019-03-04 13:57] VITALS: BP 136/91
--- NOTE | 2019-03-04 14:11 | NUR ---
ATTEMPTED CPAP TRIAL WITH PT 3 TIMES, EACH TIME PATIENT'S RESPIRATORY RATE WOULD DROP TO 6-7 BREATHS PER MINUTE AND WOULD NOT INCREASE. WILL ATTEMPT AGAIN TODAY. RN AWARE.
--- NOTE | 2019-03-04 14:28 | NUR ---
REMOVED IV FROM RFA AND LAC BOTH CATHETER TIPS INTACT/ ALSO REMOVED RIGHT FEMORAL CENTRAL LINE, CATHETER TIP INTACT. TOLERATED REMOVAL WELL.
--- NOTE | 2019-03-04 15:10 | NUR ---
Initial Nutrition Assessment: IC06/A CODIE VELASQUEZ IA HR Dx: Metabolic encephalopathy, respiratory failure PMHx: alcoholism, probable alcoholic liver disease, bipolar disorder, depression PSHx: not documented Labs: BUN 6.0L, ALB 2.9L, AST 85H Meds: Ativan, cephulac, morphine, Zofran, zosyn Diet: regular PO intake since admission: none documented Ht: 172.72 cm (68") Wt: 91.6 kg (201#) BMI: 30.7 kg/m2 Bed scale: 91.6 kg IBW: 154# (50 kg) %IBW: 130 UBW: unable to access Age: 33/M Food Allergies: NKFA Skin: abrasion at nose bridge and bruising to L forehead Guille: 16 Edema: none GI: Last BM: 03/02 Per H&P, Pt is a 33 YO M with PMHx of alcoholism, probable alcoholic liver disease, bipolar disorder, depression who was brought to ER for Altered level of mentation. RD Note (03/04): Patient was sleeping and is s/p extubation. Per RN, patient does not have any N/V/D/C now and is hungry but they are waiting for MD to order diet. MD ordered mechanically soft- chopped diet. Per progress note (03/03), Wean to extubate today. Sedation with Ativan and morphine. Banana bag daily. Patient on 2L NC. Problem with: N/V/D/C: none per RN Problems with: Chewing: Swallowing: unable to access Current appetite: good per RN Recent wt change: unable to access %wt change: n/a Vitamin/Supplement use: unable to access Special diet at home: unable to access Physical activity: unable to access Nutrition education given: not possible at this time Food-drug interactions: none Education given: n/a Estimated Nutritional Needs Based on adjusted body weight (61 kg) Energy: 0961-5259 kcal/day (30-35 kcal/kg for chronic poor PO) Protein: 73-85 g/day (1.2-1.4 g/kg for alcoholism, poor PO) Fluid: 2819-2570 mL/day (1 mL/kcal) Nutrition Diagnosis: 1. Inadequate oral intake related to medical condition, possible poor appetite as evidenced by history of chronic alcoholism. Intervention 1. Recommend continuing mechanically soft- chopped diet. Monitor/Evaluate Goal: PO intake at least 75% of estimated needs Monitor: PO intake, Labs, GI function F/U in 3-5 days as moderate risk 03/07-03/09
--- NOTE | 2019-03-04 15:10 | NUR ---
1. Recommend continuing mechanically soft- chopped diet.
--- NOTE | 2019-03-04 15:23 | NUR ---
EXPLAINED DISCHARGE INSTRUCTIONS, CONTINUED MEDS AND FOLLOW UP APPT PT WILL ATTENDED ON 03/28/19, PT AGREED AND SIGNED ALL DISCHARGE INSTRUCTIONS. PICTURE TAKEN OF PT ABRASION ON NOSE BRIDGE. SNACK PROVIDED AND BUS PASS GIVEN. PT IS CHANGING AT THIS TIME AND WILL ADVICE WHEN HE IS DONE.
--- NOTE | 2019-03-04 15:47 | NUR ---
DEBT COLLECTOR NOE WALKED PT TO DISCHARGE LOBBY. PT WANTED TO WALK/ PT IS CLEAR ON ALL D/C INSTRUCTIONS AND FOLLOW UP APPT. PT IS BREATHING EVEN AND UNLABORED ON RA,NO ACUTE RESP DISTRESS OR SOB NOTED. DENIES ANY CP OR PRESSURE. PT DISCHARGED.
== END 2019-03-04 15:54 | disposition home or self-care (01) | DRG 133 ==
LOC: ED 17:56 → IC 19:43
PROVIDERS: Emergency Medicine; ADMIT Internal Medicine Pulmonary Disease
PROC: 5A1935Z Respiratory Ventilation, Less than 24 Consecutive Hours (ICD-10-PCS; principal; 2019-03-02)
PROC: 0BH17EZ Insertion of Endotracheal Airway into Trachea, Via Natural or Artificial Opening (ICD-10-PCS; 2019-03-02)
PROC: 06HY33Z Insertion of Infusion Device into Lower Vein, Percutaneous Approach (ICD-10-PCS; 2019-03-02)
DX: J96.01 Acute respiratory failure with hypoxia (principal); G93.41 Metabolic encephalopathy; J96.02 Acute respiratory failure with hypercapnia; F31.30 Bipolar disorder, current episode depressed, mild or moderate severity, unspecified; F10.229 Alcohol dependence with intoxication, unspecified; K70.40 Alcoholic hepatic failure without coma; Y90.0 Blood alcohol level of less than 20 mg/100 ml; Z59.0 Homelessness; Z23 Encounter for immunization
CPT/HCPCS: 31500; 36600; 82962; 83880; 90715; A4628; C9113; G0378; G0480; J2060; J2270; J2310; J2405; J2543; J2704; J3480; J3490; Q0092

== ENCOUNTER 2019-03-12 02:03 | Emergency (ER) | payer OTHER ==
[~2019-03-12] VITALS: Ht 175.3 cm; Wt 93.9 kg
[2019-03-12 02:20] VITALS: Ht 175.3 cm; Wt 93.9 kg
[2019-03-12 07:59] VITALS: BP 113/73
== END 2019-03-12 07:59 | disposition home or self-care (01) ==
LOC: ED 02:03
DX: I12.9 Hypertensive chronic kidney disease with stage 1 through stage 4 chronic kidney disease, or unspecified chronic kidney disease (principal); N18.9 Chronic kidney disease, unspecified
CPT/HCPCS: 82962; J1885

== ENCOUNTER 2019-03-15 00:17 | Emergency (ER) | payer OTHER ==
[~2019-03-15] VITALS: Ht 177.8 cm; Wt 93.4 kg
[2019-03-15 00:30] VITALS: Ht 177.8 cm; Wt 93.4 kg
[2019-03-15 03:00] VITALS: BP 153/103
== END 2019-03-15 03:00 | disposition home or self-care (01) ==
LOC: ED 00:17
DX: S16.1XXA Strain of muscle, fascia and tendon at neck level, initial encounter (principal); X58.XXXA Exposure to other specified factors, initial encounter; Y93.89 Activity, other specified; Y92.89 Other specified places as the place of occurrence of the external cause; Y99.8 Other external cause status; I10 Essential (primary) hypertension

== ENCOUNTER 2019-03-15 08:01 | Emergency (ER) | payer OTHER ==
[~2019-03-15] VITALS: Ht 177.8 cm; Wt 93.4 kg
[2019-03-15 08:05] VITALS: Ht 177.8 cm; Wt 93.4 kg
[2019-03-15 09:39] VITALS: BP 142/87
== END 2019-03-15 09:39 | disposition home or self-care (01) ==
LOC: ED 08:01
DX: S16.1XXA Strain of muscle, fascia and tendon at neck level, initial encounter (principal); S49.91XA Unspecified injury of right shoulder and upper arm, initial encounter; F10.10 Alcohol abuse, uncomplicated; I10 Essential (primary) hypertension; W18.30XA Fall on same level, unspecified, initial encounter; Y93.89 Activity, other specified; Y92.89 Other specified places as the place of occurrence of the external cause; Y99.8 Other external cause status

== ENCOUNTER 2019-03-17 02:26 | Emergency (ER) | payer OTHER ==
[~2019-03-17] VITALS: Ht 177.8 cm; Wt 92.1 kg
[2019-03-17 03:48] VITALS: BP 154/95
== END 2019-03-17 03:48 | disposition home or self-care (01) ==
LOC: ED 02:26
DX: R22.2 Localized swelling, mass and lump, trunk (principal); M54.6 Pain in thoracic spine; I10 Essential (primary) hypertension

== ENCOUNTER 2019-03-18 08:55 | Emergency (ER) | payer OTHER ==
[~2019-03-18] VITALS: Ht 177.8 cm; Wt 92.5 kg
[2019-03-18 09:07] VITALS: Ht 177.8 cm; Wt 92.5 kg
[2019-03-18 16:15] VITALS: BP 112/63
== END 2019-03-18 16:15 | disposition home or self-care (01) ==
LOC: ED 08:55
DX: S00.31XD Abrasion of nose, subsequent encounter (principal); F10.129 Alcohol abuse with intoxication, unspecified; I10 Essential (primary) hypertension; F17.210 Nicotine dependence, cigarettes, uncomplicated; Z59.0 Homelessness; X58.XXXD Exposure to other specified factors, subsequent encounter
CPT/HCPCS: 99406

== ENCOUNTER 2019-03-19 01:01 | Emergency (ER) | payer OTHER ==
[~2019-03-19] VITALS: Ht 172.7 cm; Wt 92.5 kg
[2019-03-19 01:12] VITALS: Ht 172.7 cm; Wt 92.5 kg
[2019-03-19 01:55] VITALS: BP 146/95
== END 2019-03-19 01:55 | disposition home or self-care (01) ==
LOC: ED 01:01
DX: F10.10 Alcohol abuse, uncomplicated (principal); M54.2 Cervicalgia; I10 Essential (primary) hypertension; Z59.0 Homelessness

== ENCOUNTER 2019-03-26 00:48 | Emergency (ER) | payer OTHER ==
[~2019-03-26] VITALS: Ht 177.8 cm; Wt 92.1 kg
[2019-03-26 01:03] VITALS: Ht 177.8 cm; Wt 92.1 kg
[2019-03-26 03:22] VITALS: BP 138/93
== END 2019-03-26 03:22 | disposition home or self-care (01) ==
LOC: ED 00:48
DX: M54.9 Dorsalgia, unspecified (principal); G89.29 Other chronic pain; I10 Essential (primary) hypertension; F17.210 Nicotine dependence, cigarettes, uncomplicated

== ENCOUNTER 2019-04-12 11:06 | Observation (INO) | payer OTHER ==
[~2019-04-12] VITALS: Ht 177.8 cm; Wt 91.7 kg
[2019-04-12 11:11] VITALS: Ht 177.8 cm; Wt 91.7 kg
[2019-04-12 11:43] LABS: BASOPHIL % 0.3 % (0-2); PLATELET COUNT 471 x10^3mcL (130-400); RED CELL DISTRIBUTION WIDTH 13.7 % (11.5-14.5)
[2019-04-12 11:58] LABS: CALCIUM 8.4 mg/dL (8.5-10.1); CARBON DIOXIDE 23.6 mmol/L (21-32); CHLORIDE SERUM 104 mmol/L (98-107); CREATININE SERUM 1.3 mg/dL (0.7-1.3); GFR1 > 60 mL/min; GLUCOSE SERUM 116 mg/dL (74-106); POTASSIUM SERUM 3.8 mmol/L (3.5-5.1); SODIUM SERUM 141 mmol/L (136-145)
[2019-04-12 12:03] LABS: ALKALINE PHOSPHATASE 89 U/L (46-116); ALT/SGPT 77 U/L (16-63); AST/SGOT 42 U/L (15-37); BILIRUBIN TOTAL 0.1 mg/dL (0.20-1.00); TOTAL PROTEIN, SERUM 7.3 g/dL (6.4-8.2)
[2019-04-12 12:05] LABS: ALBUMIN 3.3 g/dL (3.4-5.0)
[2019-04-12 15:09] VITALS: BP 127/86
[2019-04-12 15:21] LABS: AMPHETAMINE QUAL UR NONE DETECTED (See below)
[2019-04-12 17:21] VITALS: BP 130/84
[2019-04-12 20:26] VITALS: BP 111/67
[2019-04-13 05:51] VITALS: BP 132/90
[2019-04-13 07:16] LABS: BASOPHIL % 0.8 % (0-2); RED CELL DISTRIBUTION WIDTH 13.6 % (11.5-14.5)
[2019-04-13 07:28] LABS: PLATELET COUNT 447 x10^3mcL (130-400)
[2019-04-13 08:48] VITALS: BP 139/92
[2019-04-13 12:49] VITALS: BP 145/90
[2019-04-13] MEDS ORDERED: NAPROXEN375 MG PO (15:23)
[2019-04-13 15:28] VITALS: BP 145/90
== END 2019-04-13 15:55 | disposition home or self-care (01) ==
LOC: ED 11:06 → DU 13:01
PROVIDERS: ADMIT Hospitalist
DX: R55 Syncope and collapse (principal); E86.0 Dehydration; R74.0 Nonspecific elevation of levels of transaminase and lactic acid dehydrogenase [LDH]; K70.9 Alcoholic liver disease, unspecified; F10.10 Alcohol abuse, uncomplicated; F41.8 Other specified anxiety disorders; I10 Essential (primary) hypertension; F17.210 Nicotine dependence, cigarettes, uncomplicated
CPT/HCPCS: 83880; 85378; G0378; J7030; Q0092